=== PATIENT | female | born 1980 | race Caucasian/White ===

== ENCOUNTER → 2019-08-12 16:43 | Outpatient (BNVA) | payer BC, SELFPAY | PROVIDERS: Family Provider Family Medicine; PCP Family Medicine; Visit Provider Nurse Practitioner Family | DX: R05 Cough (principal); R06.02 Shortness of breath; Z87.01 Personal history of pneumonia (recurrent) | CPT/HCPCS: 71046 ==

== ENCOUNTER 2024-08-07 19:23 | Emergency (ER) | payer BC, SELFPAY ==
[2024-08-07 19:48] VITALS: BP 123/82; PULSE 79; RESP 18; TEMP 36.9; O2SAT 100; BMI 29.4
[2024-08-07 19:51] LABS: Basophils # 0.1 10^3/uL (0.0-0.1); Basophils % 0.6 %; Eosinophils # 0.2 10^3/uL (0.0-0.8); Eosinophils % 1.7 %; Hematocrit 39.3 % (36-47); Lymphocytes # 2.3 10^3/uL (0.8-4.8); Lymphocytes % 25.5 %; Mean Corpuscular HGB Conc 33.1 g/dL (30-55); Mean Corpuscular Hemoglobin 31.3 pg (27-33); Mean Corpuscular Volume 94.5 fl (85-98); Mean Platelet Volume 9.9 fL (7.4-10.4); Monocytes # 0.7 10^3/uL (0.2-0.9); Monocytes % 8.1 %; Neutrophils # 5.68 10^3/uL (1.8-7.7); Neutrophils % 63.8 %; Nucleated Red Blood Cells % 0 %; Platelet Count 249 10^3/cmm (157-399); Red Blood Count 4.16 10^6/uL (3.85-5.65); Red Cell Distribution Width 12.3 % (12.1-15.1)
[2024-08-07 20:00] VITALS: BP 123/86; PULSE 81; O2SAT 100
--- NOTE | 2024-08-07 20:04 | CTR_ITS ---
PROCEDURE INFORMATION: Exam: CT Abdomen And Pelvis With Contrast Exam date and time: 08/07/2024 8:30 PM Age: 44 years old Clinical indication: Abdominal pain; Generalized; Prior surgery; Surgery date: 6+ months; Surgery type: Hysterectomy, gb, appy; Additional info: Abd pain TECHNIQUE: Imaging protocol: Computed tomography of the abdomen and pelvis with contrast. Radiation optimization: All CT scans at this facility use at least one of these dose optimization techniques: automated exposure control; mA and/or kV adjustment per patient size (includes targeted exams where dose is matched to clinical indication); or iterative reconstruction. Contrast material: OMNIPAQUE 350; Contrast volume: 100 ml; Contrast route: INTRAVENOUS (IV); COMPARISON: CR XR chest 2V* [id number] 08/12/2019 4:53 PM RADIATION DOSE METRICS: Total DLP (mGy-cm): 829.23 FINDINGS: Lungs: Mild right posterior lower lobe atelectasis or scarring.. Heart: Heart size is within normal limits. There is no pericardial effusion or pericardial thickening. Liver: The liver is normal. No hepatic masses are identified. Gallbladder and biliary ducts: The gallbladder is surgically absent. There is no ductal dilatation. Pancreas: The pancreas is normal. Spleen: The spleen is normal. Adrenal glands: The adrenal glands are normal. Kidneys and ureters: There is normal enhancement of the kidneys. No renal calcifications are identified. There is no hydronephrosis. Stomach and bowel: There is no large or small bowel obstruction. There is no evidence of bowel wall thickening. Appendix: A normal appendix is not identified. There is no secondary evidence of acute appendicitis. Intraperitoneal space: No inflammatory changes are identified. There is no free fluid or fluid collection seen. There is no pneumoperitoneum. Vasculature: The aorta is normal in course and caliber. No significant atherosclerotic calcifications are present. Lymph nodes: No enlarged lymph nodes are identified. Urinary bladder: The bladder is unremarkable. Reproductive: The uterus is absent. Bones/joints: No acute osseous abnormalities are seen. Soft tissues: Small periumbilical hernia containing only fat. CT/CT abdomen pelvis w con* [id number] IMPRESSION: 1. No acute intra-abdominal or pelvic process. 2. Other nonemergent findings above.
--- NOTE | 2024-08-07 20:05 | W.ED.ABDPA2 ---
HPI - Abdominal Pain General: Chief Complaint: Abdominal Pain Stated Complaint: ABD Pain,Pressure Time Seen by Provider: 08/07/24 19:42 Source: patient Mode of arrival: ambulatory Limitations: no limitations History of Present Illness: 44-year-old female states she been having lower abdominal pain throughout the day. She states it worsened this evening gets a cramping pain in her lower abdomen. She rates the pain 8 out of 10 currently denies any diarrhea or vomiting she had multiple surgeries including appendectomy and hysterectomy. Associated Symptoms: Denies chills, diarrhea, fever(s), nausea and vomiting Related Data Previous Rx's ?Medication ?Instructions ?Recorded levofloxacin 750 mg tablet 750 mg PO DAILY #7 tabs 08/14/19 (Levaquin) metoclopramide HCl 10 mg tablet 10 mg PO Q6H PRN nausea and 08/07/24 (Reglan) vomiting #20 tabs Allergies Allergy/AdvReac Type Severity Reaction Status Date / Time orphenadrine (From Norflex) Allergy ADR-Itching Verified 08/12/19 15:21 Review of Systems Const: Denies: fever(s), chills, body aches or change in appetite ENMT: Denies: throat pain or dental pain Card: Denies: chest pain Resp: Denies: dyspnea GI: Reports: abdominal pain; Denies: nausea, vomiting or diarrhea Musc: Denies: neck pain or back pain Skin/Breast: Denies: rash Neuro: Denies: headache(s) PFS ED PFSH: Medical History History of DVT (deep vein thrombosis) Social History Smoking and tobacco/nicotine status: never used tobacco/nicotine Alcohol intake: current Alcohol intake frequency: holidays/special occasions only Substance/Drug Use: never Physical Exam Const: COMMON NORMALS: no acute distress, patient oriented x3 and healthy appearing HENMT: COMMON NORMALS: normocephalic and atraumatic HEAD & SCALP: normocephalic and atraumatic Neck/C-Spine: COMMON NORMALS: full ROM and supple Chest: COMMONS NORMALS: normal inspection of the chest Resp: COMMON NORMALS: normal respiratory effort, No retractions, No use of accessory muscles and clear to auscultation bilaterally AUSCULTATION: clear to auscultation bilaterally Cardio: COMMON NORMALS: regular rate, regular rhythm and No murmurs present (Cardio) RATE: regular rate RHYTHM: regular rhythm GI: COMMON NORMALS: Normal to inspection, nondistended, normoactive bowel sounds present, Soft to palpation and no masses PALPATION: Yes Soft to palpation OTHER: suprapubic tenderness Extremity: COMMON NORMALS: normal to inspection and full ROM Neuro: COMMON NORMALS: patient oriented x3, moves all extremities and no focal motor deficits Psych: COMMON NORMALS: mental status grossly normal, Normal thought process present and cooperative THOUGHT PROCESS: Normal thought process present Skin: COMMON NORMALS: no rashes or lesions noted and no wounds GENERAL SKIN EXAM: no rashes or lesions noted Course Vital Signs: Vital signs: Vital Signs Temperature 98.5 F 08/07/24 19:48 Pulse Rate 79 08/07/24 19:48 Respiratory Rate 18 08/07/24 19:48 Blood Pressure 123/82 08/07/24 19:48 Pulse Oximetry 100 08/07/24 19:48 Oxygen Delivery Me thod Room Air 08/07/24 19:48 MDM - Abdominal Pain Medical Decision Making Patient presents here with abdominal pain blood work CT scan here are all negative patient is well-appearing here we will place her on Reglan she stable for discharge follow-up PCP return if worsening. Medical Records I reviewed the patient's medical records. Lab Data I reviewed the patient's lab results. 08/07/24 19:45 08/07/24 19:45 Labs/Radiology: Radiology Impressions Abdomen/Pelvis CT 08/07/24 20:04 IMPRESSION: 1. No acute intra-abdominal or pelvic process. 2. Other nonemergent findings above. Laboratory Results WBC 8.90 10^3/uL (3.29-11.43) 08/07/24 19:45 RBC 4.16 10^6/uL (3.85-5.65) 08/07/24 19:45 Hgb 13.00 g/dL (11.27-16.99) 08/07/24 19:45 Hct 39.3 % (36-47) 08/07/24 19:45 MCV 94.5 fl (85-98) 08/07/24 19:45 MCH 31.3 pg (27-33) 08/07/24 19:45 MCHC 33.1 g/dL (30-55) 08/07/24 19:45 RDW 12.3 % (12.1-15.1) 08/07/24 19:45 Plt Count 249 10^3/cmm (157-399) 08/07/24 19:45 MPV 9.9 fL (7.4-10.4) 08/07/24 19:45 Neut % (Auto) 63.8 % 08/07/24 19:45 Lymph % (Auto) 25.5 % 08/07/24 19:45 [place] % (Auto) 8.1 % 08/07/24 19:45 Eos % (Auto) 1.7 % 08/07/24 19:45 Baso % (Auto) 0.6 % 08/07/24 19:45 Neut # (Auto) 5.68 10^3/uL (1.8-7.7) 08/07/24 19:45 Lymph # (Auto) 2.3 10^3/uL (0.8-4.8) 08/07/24 19:45 [place] # (Auto) 0.7 10^3/uL (0.2-0.9) 08/07/24 19:45 Eos # (Auto) 0.2 10^3/uL (0.0-0.8) 08/07/24 19:45 Baso # (Auto) 0.1 10^3/uL (0.0-0.1) 08/07/24 19:45 Nucleated RBC % (auto) 0 % 08/07/24 19:45 Nucleated RBCs # 0.0 /100WBC 08/07/24 19:45 Sodium 138 mmol/L (136-145) 08/07/24 19:45 Potassium 3.7 mmol/L (3.5-5.1) 08/07/24 19:45 Chloride 104 mmol/L (98-107) 08/07/24 19:45 Carbon Dioxide 24 mmol/L (22-29) 08/07/24 19:45 Anion Gap 13.7 (5-19) 08/07/24 19:45 BUN 11 mg/dL (6-20) 08/07/24 19:45 Creatinine 0.7 mg/dL (0.5-0.9) 08/07/24 19:45 GFR Calculation 90.9 mL/min (90-130) 08/07/24 19:45 Glucose 80 mg/dL (65-115) 08/07/24 19:45 Calculated Osmolality 284 mOsm/kg (285-295) L 08/07/24 19:45 Calcium 9.0 mg/dL (8.5-10.5) 08/07/24 19:45 Total Bilirubin 0.3 mg/dL (0.15-1.2) 08/07/24 19:45 AST 11 U/L (0-32) 08/07/24 19:45 ALT 12 U/L (0-33) 08/07/24 19:45 Alkaline Phosphatase 62 U/L (35-105) 08/07/24 19:45 Total Protein 6.9 g/dL (6.6-8.7) 08/07/24 19:45 Albumin 4.2 g/dL (3.5-5.2) 08/07/24 19:45 Globulin 2.7 g/dL (1.3-4.6) 08/07/24 19:45 Lipase 31 U/L (13-60) 08/07/24 19:45 HCG, Qual Negative (Negative) 08/07/24 19:45 Urine Color Yellow (Yellow) 08/07/24 20:02 Urine Appearance Clear (CLEAR) 08/07/24 20:02 Urine pH 6.5 (5-7) 08/07/24 20:02 Ur Specific [place] 1.005 (1.005-1.030) 08/07/24 20:02 Urine Protein Negative (Negative) 08/07/24 20:02 Urine Glucose (UA) Negative (Normal) 08/07/24 20:02 Urine Ketones Negative (Negative) 08/07/24 20:02 Urine Blood Negative (Negative) 08/07/24 20:02 Urine Nitrate Negative (Negative) 08/07/24 20:02 Urine Bilirubin Negative (Negative) 08/07/24 20:02 Urine Urobilinogen 0.2 mg/dL (Negative) 08/07/24 20:02 Ur Leukocyte Esterase Negative (Negative) 08/07/24 20:02 Urine RBC 3-5 /hpf (0-2) 08/07/24 20:02 Urine WBC 0-5 /hpf (0-5) 08/07/24 20:02 Ur Squamous Epith Cells 0-5 /hpf (0-5) 08/07/24 20:02 Amorphous Sediment Not Reportable 08/07/24 20:02 Urine Bacteria None seen /hpf (NONE) 08/07/24 20:02 Hyaline Casts 0-4 /lpf H 08/07/24 20:02 All radiology interpretation(s) finalized by discharge Discharge Plan Discharge Patient Disposition: Home Clinical Impression: Abdominal pain Condition: Stable Prescriptions: New metoclopramide HCl [Reglan] 10 mg tablet 10 mg PO Q6H PRN (Reason: nausea and vomiting) Qty: 20 0RF No Action levofloxacin [Levaquin] 750 mg tablet 750 mg PO DAILY Qty: 7 0RF Discharge Orders: Discharge ED (Routine); Ordered 08/07/24 Ordered By: Iwona Hope Referrals: Olga Woody, [facility] [Primary Care Provider] - Discharge Diet: Advance as tolerated Discharge Activity: Resume usual activity Patient Instructions: Abdominal Pain (ED) Print Language: Serbian Coding Level of Care Code ED Supervisor [employer] for Saad Lafleur
[2024-08-07 20:08] LABS: Alanine Aminotransferase 12 U/L (0-33); Albumin Level 4.2 g/dL (3.5-5.2); Alkaline Phosphatase 62 U/L (35-105); Anion Gap 13.7 (5-19); Aspartate Amino Transferase 11 U/L (0-32); Blood Urea Nitrogen 11 mg/dL (6-20); Carbon Dioxide 24 mmol/L (22-29); Chloride 104 mmol/L (98-107); Creatinine Clr Calc Pharmacy 126.7624; Globulin 2.7 g/dL (1.3-4.6); Glomerular Filtration Rate 90.9 mL/min (90-130); Glucose 80 mg/dL (65-115); Lipase 31 U/L (13-60); Osmolality Calculated 284 mOsm/kg (285-295); Potassium 3.7 mmol/L (3.5-5.1); Sodium 138 mmol/L (136-145); Total Bilirubin 0.3 mg/dL (0.15-1.2); Total Protein 6.9 g/dL (6.6-8.7)
[2024-08-07 20:17] LABS: Bilirubin Urine Negative (Negative); Blood Urine Negative (Negative); Glucose Urine UA Negative (Normal); Ketones Urine Negative (Negative); Leukocyte Esterase Urine Negative (Negative); Nitrate Urine Negative (Negative); Protein Urine Negative (Negative); Specific Gravity, Urine 1.005 (1.005-1.030); Urine Appearance Clear (CLEAR); Urine Color Yellow (Yellow); Urobilinogen Urine 0.2 mg/dL (Negative); pH Urine 6.5 (5-7)
[2024-08-07] MEDS: ondansetron 2 mg/ML SDV 2 mL 4 MG IVP (20:20)
[2024-08-07] MEDS: HYDROmorphone 0.5 MG/0.5 ML INJ 1 MG IVP (20:20)
[2024-08-07 20:22] LABS: Add Urine Microscopic? YES; Bacteria Urine None Seen /hpf; Hyaline Casts Urine 0-4 /lpf; Squamous Epithelial Cell Urine 0-5 /hpf (0-5); WBC Urine 0-5 /hpf (0-5)
[2024-08-07 20:23] LABS: HCG, Serum Qual Negative (Negative)
[2024-08-07] MEDS: iohexol 350 mg/mL 500 mL Btl (per mL) IV (20:39)
[2024-08-07 21:16] VITALS: BP 133/82; PULSE 92; O2SAT 100
[2024-08-07] MEDS: diphenhydrAMINE 50 mg/mL SDV 1mL 25 MG IVP (21:29)
[2024-08-07] MEDS: metoclopramide 5 mg/mL SDV 2 mL IVP (21:29)
[2024-08-07 21:30] VITALS: BP 125/69; PULSE 84; O2SAT 100
[2024-08-07 22:22] VITALS: BP 129/88; PULSE 78; RESP 17; O2SAT 100
== END 2024-08-07 22:06 | disposition home or self-care (01) ==
PROVIDERS: Emergency Provider Emergency Medicine; PCP Nurse Practitioner Primary Care
DX: R10.30 Lower abdominal pain, unspecified (principal)
CPT/HCPCS: 36415; 74177; 80053; 81001; 83690; 84703; 85025; 96374; 96375; 99285; J1171; J1200; J2405; J2765